=== PATIENT | female | born 2000 ===

== ENCOUNTER 2024-06-01 13:49 | Emergency (ER) | payer SELFPAY ==
[2024-06-01 14:00] VITALS: BP 107/75; PULSE 104; RESP 20; TEMP 98.8; BMI 35.8
== END 2024-06-01 14:36 | disposition left against medical advice (07) ==
LOC: JER 13:49
DX: Z53.21 Procedure and treatment not carried out due to patient leaving prior to being seen by health care provider (principal)
CPT/HCPCS: 99281-25